=== PATIENT | female | born 1970 | race Caucasian/White ===

== ENCOUNTER 2023-02-02 14:12 | Outpatient (OUT) | payer MEDICARE, MEDICAID, SELFPAY ==
--- NOTE | 2023-02-02 | XR_ITS ---
The [address] [address] Patient Name: MERLY HAYES MRN: [id number] date: 1970 Sex: F Assigned Patient Location: [facility] Current Patient Location: Accession/Order Number: [id number] Exam Date: 02/02/2023 14:45 Report Date: 02/03/2023 11:30 At the request of: CHADWICK GRIFFITH Procedure: XR foot YORDAN min 3V EXAMINATION: XR foot YORDAN min 3V HISTORY: BILATERAL FOOT PAIN COMPARISON: No relevant comparison available. FINDINGS: RIGHT FINDINGS: BONES: No significant arthropathy or acute abnormality. SOFT TISSUES: No visible soft tissue swelling. OTHER: Negative. LEFT FINDINGS: BONES: Mild degenerative changes the midfoot and slight lateral deviation of the metatarsals in relation to the tarsals. No fracture or dislocation. SOFT TISSUES: No visible soft tissue swelling. OTHER: Negative. XR/XR foot YORDAN min 3V IMPRESSION: RIGHT CONCLUSION: No acute abnormality or significant degenerative changes. LEFT CONCLUSION: Mild degenerative changes of the midfoot. Electronically authenticated by: TANNER SHAY Date: 02/03/2023 11:30
== END 2023-02-02 14:13 | disposition home or self-care (01) ==
LOC: RAD 14:13
PROVIDERS: Visit Provider Physician Assistant
DX: M79.673 Pain in unspecified foot (principal)
CPT/HCPCS: 73630

== ENCOUNTER 2023-03-15 12:09 | Outpatient (OUT) | payer MEDICARE, MEDICAID, SELFPAY ==
--- NOTE | 2023-03-15 12:30 | CA_ITS ---
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 (right NANCY 1.27, left NANCY 1.07) Electronically Signed On 03-16-2023 7:21:48 EST by KELLY MIX
== END 2023-03-15 12:10 | disposition home or self-care (01) ==
LOC: CARD 12:09
PROVIDERS: Visit Provider Podiatrist Foot & Ankle Surgery
DX: R09.89 Other specified symptoms and signs involving the circulatory and respiratory systems (principal)
CPT/HCPCS: 93923

== ENCOUNTER 2023-03-27 09:39 | Outpatient (OUT) | payer MEDICARE, MEDICAID, SELFPAY ==
--- NOTE | 2023-03-27 09:48 | ECG_ITS ---
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
--- NOTE | 2023-03-27 10:42 | PM.PRESUREVA ---
History of Present Illness History of Present Illness Chief complaint: Left foot hammertoe Narrative: Patient presents for preadmission testing. Please see HPI from Dr. Acosta dated 03/07/2023. Review of Systems ROS Narrative Please see ROS from Dr. Acosta dated 03/07/2023. [facility] Medical History (Updated 03/27/23 @ 10:38 by Angela Larry NP) Neuropathy ?G62.9 - Polyneuropathy, unspecified (ICD-10) Tinea unguium ?B35.1 - Tinea unguium (ICD-10) Foot drop ?M21.379 - Foot drop, unspecified foot (ICD-10) Pes planus ?M21.40 - Flat foot [pes planus] (acquired), unspecified foot (ICD-10) Foot pain ?M79.673 - Pain in unspecified foot (ICD-10) Back pain ?M54.9 - Dorsalgia, unspecified (ICD-10) Sciatic leg pain ?M54.30 - Sciatica, unspecified side (ICD-10) Arthritis ?M19.90 - Unspecified osteoarthritis, unspecified site (ICD-10) Hammertoe ?M20.40 - Other hammer toe(s) (acquired), unspecified foot (ICD-10) Anxiety ?F41.9 - Anxiety disorder, unspecified (ICD-10) Migraine ?G43.909 - Migraine, unspecified, not intractable, without status migrainosus (ICD-10) Left-sided weakness ?R53.1 - Weakness (ICD-10) CVA (cerebral vascular accident) (2019) ?I63.9 - Cerebral infarction, unspecified (ICD-10) CVA (cerebral vascular accident) (1989) ?I63.9 - Cerebral infarction, unspecified (ICD-10) Kidney stones ?N20.0 - Calculus of kidney (ICD-10) GERD (gastroesophageal reflux disease) ?K21.9 - Gastro-esophageal reflux disease without esophagitis (ICD-10) High cholesterol ?E78.00 - Pure hypercholesterolemia, unspecified (ICD-10) Hypertension ?I10 - Essential (primary) hypertension (ICD-10) Surgical History (Updated 03/27/23 @ 10:28 by Angela Larry NP) History of colonoscopy ?Z98.890 - Other specified postprocedural states (ICD-10) History of hysterectomy ?Z90.710 - Acquired absence of both cervix and uterus (ICD-10) Family History (Updated 03/27/23 @ 10:28 by Angela Larry NP) Other Family history of diabetes mellitus Family history of hypertension Family history of myocardial infarction Social History (Updated 03/27/23 @ 10:24 by Angela Larry NP) Within the past year, how often did you have a drink containing alcohol: never Score interpretation: A score less than 3 is consistent with normal alcohol consumption. Smoking status: Current every day smoker What tobacco products do you use: cigarettes Packs per day: 1 Years smoked: 35 Smoking pack-years: 35.00 Highest level of school completed/degree received: high school graduate Meds Home Medications and Allergies Home Medications Medication Instructions Recorded Confirmed Type clopidogrel 75 mg tablet (Plavix) 75 mg PO DAILY 03/27/23 03/27/23 History cyclobenzaprine 10 mg tablet 10 mg PO DAILY PRN muscle spasm 03/27/23 03/27/23 History diltiazem HCl 300 mg 300 mg PO Q24H 03/27/23 03/27/23 History capsule,extended release 24 hr lisinopril 10 mg tablet 10 mg PO DAILY 03/27/23 03/27/23 History pantoprazole 40 mg tablet,delayed 40 mg PO DAILY 03/27/23 03/27/23 History release pravastatin 40 mg tablet 40 mg PO DAILY 03/27/23 03/27/23 History pregabalin 75 mg capsule 75 mg PO BID 03/27/23 03/27/23 History Allergies Allergy/AdvReac Type Severity Reaction Status Date / Time celecoxib [From Celebrex] Allergy Hypotension Verified 03/27/23 10:19 duloxetine [From Cymbalta] Allergy Unknown Verified 03/27/23 10:19 ibuprofen Allergy Hives Verified 03/27/23 10:19 Sulfa (Sulfonamide Allergy Rash Verified 03/27/23 10:19 Antibiotics) tetracycline Allergy lip Verified 03/27/23 10:19 swelling tramadol AdvReac Nausea Verified 03/27/23 10:19 Exam Narrative Exam Narrative: Constitutional: Awake, alert, comfortable, well-appearing, nontoxic, interactive, vital signs as charted Head: Normocephalic, atraumatic Neck: Supple, normal appearance, normal range of motion, no meningeal signs, no lymphadenopathy Respiratory: No respiratory distress, breath sounds clear Cardiovascular: Regular rate and rhythm, strong and regular heart tones Psychiatric: Oriented ?3, normal affect Assessment and Plan Assessment and Plan (1) Pes planus: (2) Foot pain: (3) Hammertoe: Plan Left partial 3rd toe amputation scheduled with Dr. Acosta 04/06/2023.
[2023-03-27 11:16] LABS: Basophils Absolute Auto 0.1 10^3/uL (0.0-0.1); Basophils Percent Auto 0.7 % (0.2-2.0); Eosinophils Absolute Auto 0.4 10^3/uL (0.0-0.7); Hematocrit 43.7 % (36.0-48.0); Hemoglobin 14.8 g/dL (12.0-16.0); Immature Granulocytes Abs Auto 0.02 10^3/uL (0.00-0.03); Immature Granulocytes Pct Auto 0.2 % (0.0-0.5); Lymphocytes Absolute Auto 3.8 10^3/uL (1.2-3.8); Lymphocytes Percent Auto 41.3 % (20.5-60.0); Mean Corpuscular HGB Conc 33.9 g/dL (29.9-35.2); Mean Corpuscular Hemoglobin 32.7 pg (26.7-34.0); Mean Corpuscular Volume 96.7 fL (81.0-99.0); Mean Platelet Volume 9.4 fL (9.5-13.5); Monocytes Absolute Auto 0.5 10^3/uL (0.3-0.8); Monocytes Percent Auto 5.4 % (1.7-12.0); Neutrophils Absolute Auto 4.5 10^3/uL (1.4-6.5); Neutrophils Percent Auto 48.4 % (43.0-75.0); Platelet Count 327 10^3/uL (150-450); Red Blood Count 4.52 10^6/uL (4.20-5.40); Red Cell Distribution Width 13.1 % (11.0-15.0); White Blood Count 9.2 10^3/uL (4.0-11.0)
[2023-03-27 11:26] LABS: Partial Thromboplastin Time 29.7 sec (22.3-36.2); Prothrombin Time 9.6 sec (9.0-11.6)
[2023-03-27 11:27] LABS: Anion Gap 11.4; Calcium 8.9 mg/dL (8.5-10.1); Carbon Dioxide 28.3 mmol/L (21.0-32.0); Chloride 103 mmol/L (98-107); Estimated GFR (African America >60 (>=60); Estimated GFR (Non-African Ame >60 (>=60); Glucose 79 mg/dL (74-106); Potassium 3.7 mmol/L (3.5-5.1); Sodium 139 mmol/L (136-145)
[2023-03-27 11:28] LABS: INR <0.93
== END 2023-03-27 09:40 | disposition home or self-care (01) ==
LOC: PST 09:43
PROVIDERS: PCP Physician Assistant; Visit Provider Podiatrist Foot & Ankle Surgery
DX: Z01.810 Encounter for preprocedural cardiovascular examination (principal); Z01.812 Encounter for preprocedural laboratory examination; M20.42 Other hammer toe(s) (acquired), left foot
CPT/HCPCS: 80048; 85025; 85610; 85730; 93005; G0463

== ENCOUNTER 2023-03-31 18:44 | Outpatient (REF) | payer MEDICARE, MEDICAID, SELFPAY ==
--- OUTSIDE RECORDS SUMMARY | 2023-03-31 18:48 | XMS_ITS | CCD ---
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 Performed By: #### B MP, CBC, SCAN ####[place] [address] [place] [address] [place] Estimated GFR (Non- Am > 60 Normal [facility] Comment on above: Performed By: #### B MP, CBC, SCAN ####[address] [address] [place] Glucose mass conc 79 mg/dL Normal 70-100 [facility] Comment on above: Result Comment: [facility] Glucose Reference Range is dependent on time and content of last meal. Glucose of more than 200 mg/dL in a nonstressed, ambulatory subject supports the diagnosis of Diabetes Mellitus. ADA recommended reference range Performed By: #### B MP, CBC, SCAN ####[place] [address] [place] [address] [facility] Potassium molar conc 3.5 mmol/L Normal 3.5-5.1 [facility] Comment on above: Performed By: #### B MP, CBC, SCAN ####[place] [address] [place] [address] [place] Sodium molar conc 137 mmol/L Normal 136-146 [facility] Comment on above: Performed By: #### B MP, CBC, SCAN ####[address] [address] [place] Urea nitrogen mass conc 9 mg/dL Normal 9-23 [facility] Comment on above: Performed By: #### B MP, CBC, SCAN ####[place] [address] [address] Complete Blood Count Auto Di ffon 06-26-2018 Basophils #/vol (Bld) 0.1 10*3/uL Normal 0.0-0.2 [facility] Comment on above: Performed By: #### B MP, CBC, SCAN ####[address] Basophils/100 WBC (Bld) 0.6 % Normal . [facility] Comment on above: Performed By: #### B MP, CBC, SCAN ####[address] Eosinophils #/vol (Bld) 0.2 10*3/uL Normal 0.0-0.45 [facility] Comment on above: Performed By: #### B MP, CBC, SCAN ####[address] Eosinophils/100 WBC (Bld) 1.7 % Normal . [facility] Comment on above: Performed By: #### B MP, CBC, SCAN ####[address] Erythrocyte distribution width Ratio (RBC) 14.7 % Normal 11.9-15.3 [facility] Comment on above: Performed By: #### B MP, CBC, SCAN ####[address] Hematocrit Volume Fraction (Bld) 45.3 % Normal 34.0-46.4 [facility] Comment on above: Performed By: #### B MP, CBC, SCAN ####[address] Hemoglobin mass conc (Bld) 15.3 g/dL Normal 11.8-15.4 [facility] Comment on above: Performed By: #### B MP, CBC, SCAN ####[facility] [address] [place] [address] Lymphocytes #/vol (Bld) 6.1 10*3/uL High 1.00-4.8 [facility] Comment on above: Performed By: #### B MP, CBC, SCAN ####[place] [id number] [facility] Lymphocytes/100 WBC (Bld) 45.3 % Normal . [facility] Comment on above: Performed By: #### B MP, CBC, SCAN ####[place] [address] [place] [address] [facility] MCH Entitic mass (RBC) 32.9 pg Normal 24.7-34.3 [facility] Comment on above: Performed By: #### B MP, CBC, SCAN ####[place] [address] [place] [address] [facility] MCH Entitic mass (RBC) 33.7 g/dL Normal 32.0-35.0 [facility] Comment on above: Performed By: #### B MP, CBC, SCAN ####[address] MCV Entitic volume (RBC) 97.6 fL Normal 80-100 [facility] Comment on above: Performed By: #### B MP, CBC, SCAN ####[place] [id number] [facility] Monocytes #/vol (Bld) 0.7 10*3/uL Normal 0.0-0.8 [facility] Comment on above: Performed By: #### B MP, CBC, SCAN ####[place] [id number] [facility] Monocytes/100 WBC (Bld) 5.4 % Normal . [facility] Comment on above: Performed By: #### B MP, CBC, SCAN ####[address] [address] [facility] Neutrophils #/vol (Bld) 6.4 10*3/uL Normal 1.8-7.7 [facility] Comment on above: Performed By: #### B MP, CBC, SCAN ####[facility] [address] [place], [place] [id number] [facility] Neutrophils/100 WBC (Bld) 47.0 % Normal . [facility] Comment on above: Performed By: #### B MP, CBC, SCAN ####[place] [address] [place] [id number] [facility] Nucleated RBC/100 WBC Ratio (Bld) 0.1 % Normal 0-0.5 [facility] Comment on above: Performed By: #### B MP, CBC, SCAN ####[place] [id number] [facility] Platelet mean volume Entitic volume (Bld) 7.3 fL Normal 6.3-10.7 [facility] Comment on above: Performed By: #### B MP, CBC, SCAN ####[place] [id number] [facility] Platelets #/vol (Bld) 348 10*3/uL Normal 150-450 [facility] Comment on above: Performed By: #### B MP, CBC, SCAN ####[address] RBC #/vol (Bld) 4.64 10*6/uL Normal 3.60-5.00 [facility] Comment on above: Performed By: #### B MP, CBC, SCAN ####[place] [id number] [facility] WBC #/vol (Bld) 13.6 10*3/uL High 3.8-11.6 [facility] Comment on above: Performed By: #### B MP, CBC, SCAN ####[place] [id number] [facility] Scan Smearon 06-26-2018 Platelet Morphology Normal Normal Normal [facility] Comment on above: Result Comment: PERF ORMED BY: [facility] [address] [place] [address] PATHOLOGIST [employer] BROWN PEREZ M.D. Performed By: #### B MP, CBC, SCAN ####[place] [address] [place] [id number] [facility] Platelets #/vol (Bld) Normal Normal Normal [facility] Comment on above: Performed By: #### B MP, CBC, SCAN ####[place] [address] [place] [id number] [facility] RBC morphology finding Nom (Bld) Normal Normal [facility] Comment on above: Performed By: #### B MP, CBC, SCAN ####[facility] [address] [place] [id number] [facility] XR chest 1V portableon 06-26 XR chest 1V portable [facility] [address] [place] [address] XRay Report Signed Patient: Merly Torrez MR#: [id number] : 1970 Acct:[id number] Age/Sex: 48 / F ADM Date: 06/24/18 Loc: Room: [address] [place] [address] Type: ADM IN Attending Dr: Yoko Johnson MD Ordering Provider: Yoko Johnson MD Date of Service: 06/26/18 XR/XR chest 1V portable: leukocytosis Copies to: Yoko Johnson MD XR chest 1V portable 06/26/2018 3:57 PM SIGNS AND SYMPTOMS: Cough, weakness, leukocytosis PROTOCOL: Frontal radiograph of the chest COMPARISON: None FINDINGS: The trachea is midline. The heart and mediastinal structures are within normal limits. The lung parenchyma is clear. There is a deformity of the distal left clavicle which is most likely posttraumatic or postoperative. The bony thorax is intact. XR/XR chest 1V portable IMPRESSION: No acute cardiopulmonary pathology. Impression dictated by: Joselito Edge M.D.06/26/2018 7:06 PM Dictation Location: [facility] Transcribed By: [facility] 06/26/181905 Dictated By: Joselito Edge II, MD 06/26/181904 Signed By: 06/26/181905 Normal [facility] A1C with Estimated Average G js 06-25-2018 Glucose mass conc 111 mg/dL Normal [facility] Comment on above: Result Comment: PERF ORMED BY: [place] [address] PATHOLOGIST [employer] BROWN PEREZ M.D. Performed By: #### C MP, MG, LIPID, CBC, A1C WTH eA #### [address] Hemoglobin A1c/Hemoglobin.total mass fraction (Bld) 5.5 % Normal 4.3-5.6 [facility] Comment on above: Result Comment: Incr eased risk for diabetes: 5.7 - 6.4 diabetes: >6.4 glycemic control for adults with diabetes: <7.0 Performed By: #### C MP, MG, LIPID, CBC, A1C WTH eA #### [address] Complete Blood Count Auto Di ffon 06-25-2018 Basophils #/vol (Bld) 0.0 10*3/uL Normal 0.0-0.2 [facility] Comment on above: Result Comment: PERF ORMED BY: [place] [address] PATHOLOGIST [employer] BROWN PEREZ M.D. Performed By: #### C MP, MG, LIPID, CBC, A1C WTH eA #### [address] Basophils/100 WBC (Bld) 0.2 % Normal . [facility] Comment on above: Performed By: #### C MP, MG, LIPID, CBC, A1C WTH eA #### [address] Eosinophils #/vol (Bld) 0.0 10*3/uL Normal 0.0-0.45 [facility] Comment on above: Performed By: #### C MP, MG, LIPID, CBC, A1C WTH eA #### [address] Eosinophils/100 WBC (Bld) 0.1 % Normal . [facility] Comment on above: Performed By: #### C MP, MG, LIPID, CBC, A1C WTH eA #### [address] Erythrocyte distribution width Ratio (RBC) 15.0 % Normal 11.9-15.3 [facility] Comment on above: Performed By: #### C MP, MG, LIPID, CBC, A1C WTH eA #### [address] Hematocrit Volume Fraction (Bld) 42.3 % Normal 34.0-46.4 [facility] Comment on above: Performed By: #### C MP, MG, LIPID, CBC, A1C WTH eA #### [address] Hemoglobin mass conc (Bld) 14.2 g/dL Normal 11.8-15.4 [facility] Comment on above: Performed By: #### C MP, MG, LIPID, CBC, A1C WTH eA #### [address] Lymphocytes #/vol (Bld) 3.5 10*3/uL Normal 1.00-4.8 [facility] Comment on above: Performed By: #### C MP, MG, LIPID, CBC, A1C WTH eA #### [address] Lymphocytes/100 WBC (Bld) 28.7 % Normal . [facility] Comment on above: Performed By: #### C MP, MG, LIPID, CBC, A1C WTH eA #### [address] MCH Entitic mass (RBC) 33.5 g/dL Normal 32.0-35.0 [facility] Comment on above: Performed By: #### C MP, MG, LIPID, CBC, A1C WTH eA #### [address] MCH Entitic mass (RBC) 32.9 pg Normal 24.7-34.3 [facility] Comment on above: Performed By: #### C MP, MG, LIPID, CBC, A1C WTH eA #### [address] MCV Entitic volume (RBC) 98.1 fL Normal 80-100 [facility] Comment on above: Performed By: #### C MP, MG, LIPID, CBC, A1C WTH eA #### [facility] [address] [place] [address] Monocytes #/vol (Bld) 0.8 10*3/uL Normal 0.0-0.8 [facility] Comment on above: Performed By: #### C MP, MG, LIPID, CBC, A1C WTH eA #### [facility] [address] [place] [address] Monocytes/100 WBC (Bld) 6.9 % Normal . [facility] Comment on above: Performed By: #### C MP, MG, LIPID, CBC, A1C WTH eA #### [facility] [address] [place] [address] Neutrophils #/vol (Bld) 7.8 10*3/uL High 1.8-7.7 [facility] Comment on above: Performed By: #### C MP, MG, LIPID, CBC, A1C WTH eA #### [address] Neutrophils/100 WBC (Bld) 64.1 % Normal . [facility] Comment on above: Performed By: #### C MP, MG, LIPID, CBC, A1C WTH eA #### [address] Nucleated RBC/100 WBC Ratio (Bld) 0.1 % Normal 0-0.5 [facility] Comment on above: Performed By: #### C MP, MG, LIPID, CBC, A1C WTH eA #### [address] Platelet mean volume Entitic volume (Bld) 7.7 fL Normal 6.3-10.7 [facility] Comment on above: Performed By: #### C MP, MG, LIPID, CBC, A1C WTH eA #### [facility] [address] [place] [address] Platelets #/vol (Bld) 333 10*3/uL Normal 150-450 [facility] Comment on above: Performed By: #### C MP, MG, LIPID, CBC, A1C WTH eA #### [place] [address] [place] RBC #/vol (Bld) 4.32 10*6/uL Normal 3.60-5.00 [facility] Comment on above: Performed By: #### C MP, MG, LIPID, CBC, A1C WTH eA #### [facility] [address] WBC #/vol (Bld) 12.2 10*3/uL High 3.8-11.6 [facility] Comment on above: Performed By: #### C MP, MG, LIPID, CBC, A1C WTH eA #### [facility] [address] Comprehensive Metabolic Pane kishan 06-25-2018 Albumin mass conc 3.1 g/dL Low 3.2-5.5 [facility] Comment on above: Performed By: #### C MP, MG, LIPID, CBC, A1C WTH eA #### [address] Albumin/Globulin mass ratio 1.2 {ratio} Normal [facility] Comment on above: Performed By: #### C MP, MG, LIPID, CBC, A1C WTH eA #### [facility] [address] [place] [address] ALP enzyme act/vol 52 U/L Normal 32-92 [facility] Comment on above: Performed By: #### C MP, MG, LIPID, CBC, A1C WTH eA #### [facility] [address] [place] [address] ALT enzyme act/vol 30 U/L Normal 10-60 [facility] Comment on above: Performed By: #### C MP, MG, LIPID, CBC, A1C WTH eA #### [facility] [address] AST enzyme act/vol 14 U/L Normal 10-42 [facility] Comment on above: Performed By: #### C MP, MG, LIPID, CBC, A1C WTH eA #### [facility] [address] Bilirubin mass conc 0.6 mg/dL Normal 0.3-1.2 [facility] Comment on above: Performed By: #### C MP, MG, LIPID, CBC, A1C WTH eA #### [address] Calcium mass conc 8.6 mg/dL Normal 8.2-10.2 [facility] Comment on above: Performed By: #### C MP, MG, LIPID, CBC, A1C WTH eA #### [address] Chloride molar conc 103 mmol/L Normal 95-114 [facility] Comment on above: Performed By: #### C MP, MG, LIPID, CBC, A1C WTH eA #### [address] CO2 molar conc 25.9 mmol/L Normal 22.0-30.0 [facility] Comment on above: Performed By: #### C MP, MG, LIPID, CBC, A1C WTH eA #### [address] Creatinine mass conc 123.7907832007 mg/dL Normal [facility] Comment on above: Performed By: #### C MP, MG, LIPID, CBC, A1C WTH eA #### [address] Creatinine mass conc 0.52 mg/dL Normal 0.44-1.03 [facility] Comment on above: Performed By: #### C MP, MG, LIPID, CBC, A1C WTH eA #### [address] Estimated GFR ( Yanci > 60 [facility] Comment on above: Result Comment: GFR estimated reference range: According to KDOQI guidelines, <60 ml/min/1.73m2 is sufficient to diagnose a patient with chronic kidney disease. Performed By: #### C MP, MG, LIPID, CBC, A1C WTH eA #### [address] Estimated GFR (Non- Am > 60 [facility] Comment on above: Performed By: #### C MP, MG, LIPID, CBC, A1C WTH eA #### [facility] [address] [place] [address] [place] Globulin mass conc (S) 2.5 g/dL Normal [facility] Comment on above: Performed By: #### C MP, MG, LIPID, CBC, A1C WTH eA #### [facility] [address] Glucose mass conc 93 mg/dL Normal 70-100 [facility] Comment on above: Result Comment: [facility] Glucose Reference Range is dependent on time and content of last meal. Glucose of more than 200 mg/dL in a nonstressed, ambulatory subject supports the diagnosis of Diabetes Mellitus. ADA recommended reference range Performed By: #### C MP, MG, LIPID, CBC, A1C WTH eA #### [facility] [address] Potassium molar conc 3.2 mmol/L Low 3.5-5.1 [facility] Comment on above: Performed By: #### C MP, MG, LIPID, CBC, A1C WTH eA #### [facility] [address] Protein mass conc 5.6 g/dL Low 6.1-7.9 [facility] Comment on above: Performed By: #### C MP, MG, LIPID, CBC, A1C WTH eA #### [facility] [address] [place] [address] [place] Sodium molar conc 137 mmol/L Normal 136-146 [facility] Comment on above: Performed By: #### C MP, MG, LIPID, CBC, A1C WTH eA #### [facility] [address] [place] [address] [place] Urea nitrogen mass conc 8 mg/dL Low 9-23 [facility] Comment on above: Performed By: #### C MP, MG, LIPID, CBC, A1C WTH eA #### [facility] [address] ECH echo transthoracicon ECH echo transthoracic [facility] [address] [place] [address] Echocardiogram Signed Patient: Merly Torrez MR#: [id number] : 1970 Acct:[id number] Age/Sex: 48 / F ADM Date: 06/24/18 Loc: 4 Room: [address] [place] [address] Type: ADM IN Attending Dr: Yoko Johnson MD Ordering Provider: Eric Donnelly MD Date of Service: 06/25/18 ECH/ECH echo transthoracic: Source of Emboli Copies to: Mckenzie Griffiths MD, FACC Eric Donnelly MD Height: 62 in Weight: 152 lb Performed By: Sarita Stuart RDCS BSA: 1.7 m2 BP: 155/79 mmHg HR: 59 Reason For Study: Source of Emboli History: HTN, Stroke, Smoker Interpretation Summary The left ventricular size, thickness and function are normal Ejection Fraction = 60-65%. The left atrium appears mildly dilated. Atrial septum appears to be intact and there is no evidence of flow across the atrial septum either by colorflow Doppler or by agitated saline. There is no prior echocardiogram noted for this patient. Procedure/Quality: A two-dimensional transthoracic echocardiogram with color flow, Doppler and injection of aggitated saline was performed. The study was technically good in quality. There is no prior echocardiogram noted for this patient. Left Ventricle: The left ventricular size, thickness and function are normal. Ejection Fraction = 60-65%. Left Atrium: The left atrium appears mildly dilated. The atrial septum appears normal. Atrial septum appears to be intact and there is no evidence of flow across the atrial septum either by colorflow Doppler or by agitated saline. Right Atrium: The right atrium appears normal in size. Right Ventricle: The right ventricular size, thickness and function are normal. Aortic Valve: The aortic valve is normal in structure and function. Mitral Valve: The mitral valve is normal in structure and function. Tricuspid Valve: The tricuspid valve is normal in structure and function. Pulmonic Valve: The pulmonic valve is not well seen, but is grossly normal. Arteries: The aortic root is normal size. Pericardium/Pleura: No pericardial effusion seen. There is no pleural effusion. IVC/Hepatic Viens: The IVC is normal in size with an inspiratory collapse of greater then 50%, suggesting normal right atrial pressure. No thrombus, vegetation or mass is seen. Measurements with Normals IVSd: 1.3 cm (0.7-1.1 cm)LVIDd: 4.6 cm (3.7-5.4 cm) LVPWd: 0.99 cm (0.7-1.1 cm)LVIDs: 3.6 cm (2.3-3.6 cm) LA dimension: 4.3 cm(2.3-4.0 cm)Ao root diam: 3.1 cm(2.0-3.2 cm) Doppler with Normals LV V1 max: 88.8 cm/sec (0.7-1.7m/s)MV E max sumi: 86.3 cm/sec(0.8-1.3m/s) MV A max sumi: 69.4 cm/sec(0.0-0.0m/s) MV E/A: 1.2 (<1.5) MMode/2D Measurements Calculations FS: 21.6 % Ao root area: LAV(MOD-sp4): LA A2 area: 17.7 cm2 EDV(Teich): 7.3 cm2 65.4 ml LA A4 area: 22.0 cm2 98.1 ml LAV(MOD-sp2): LA length (vol): ESV(Teich): 43.8 ml 5.7 cm 55.1 ml LA vol: 57.7 ml EF(Teich): 43.9 % LA vol index: 33.9 ml/m2 Doppler Measurements Calculations MV dec time: E/E' lat: 8.4 MV dec slope: Ao V2 max: 0.23 sec E/E' med: 11.2 371.5 cm/sec2 146.7 cm/sec Ao max P.6 mmHg Ao mean P.2 mmHg Ao V2 mean: 93.7 cm/sec Ao V2 VTI: 34.7 cm __ LV V1 max PG: RAP systole: 3.2 mmHg 5.0 mmHg LV V1 mean P.4 mmHg LV V1 mean: 54.4 cm/sec LV V1 VTI: 21.3 cm __ Transcribed By: LUISA 06/25/18 1014 Dictated By: Mckenzie Griffiths MD, [facility] 06/25/18 0920 Signed By: 06/25/18 1014 Normal [facility] Lipid Panelon 06-25-2018 Cholesterol in HDL mass conc 52 mg/dL Normal 35-85 [facility] Comment on above: Result Comment: HDL CHOL ATP-III CLASSIFICATION Cardiovascular Risk HDL > or equal to 60 mg/dL LOW HDL < 40 mg/dL HIGH Performed By: #### C MP, MG, LIPID, CBC, A1C WTH eA #### [facility] [address] Cholesterol mass conc 206 mg/dL High 140-200 [facility] Comment on above: Result Comment: Chol less than 200 mg/dl low risk Chol 201-239 mg/dl borderline risk Chol 240 mg/dl and greater high risk Performed By: #### C MP, MG, LIPID, CBC, A1C WTH eA #### [facility] [address] Cholesterol.total/Ch olesterol in HDL mass ratio 4.0 {ratio} Normal <5.0 [facility] Comment on above: Result Comment: PERF ORMED BY: [place] [address] PATHOLOGIST [employer] BROWN PEREZ M.D. Performed By: #### C MP, MG, LIPID, CBC, A1C WTH eA #### [facility] [address] [place] [id number] [place] LDL Cholesterol,Calculat ed 138 mg/dL High 0-100 [facility] Comment on above: Result Comment: LDL ATP III CLASSIFICATION LDL less than 100 mg/dL Optimal LDL 100-129 mg/dL Near or above optimal LDL 130-159 mg/dL Borderline high LDL 160-189 mg/dL High LDL greater than 189 mg/dL Very high Performed By: #### C MP, MG, LIPID, CBC, A1C WTH eA #### [facility] [address] Triglyceride w/Reflex 79 mg/dL Normal 35-149 [facility] Comment on above: Result Comment: TRIG ATP III CLASSIFICATION TRIG less than 150 mg/dL Normal TRIG 150-199 mg/dL Borderline high TRIG 200-500 mg/dL High TRIG greater than 500 mg/dL Very high Standard traceable to the Center for Disease Conrtrol and Prevention (CDC) test method. Performed By: #### C MP, MG, LIPID, CBC, A1C WTH eA #### [facility] [address] VLDL CHOLESTEROL 15 mg/dL Normal [facility] Comment on above: Performed By: #### C MP, MG, LIPID, CBC, A1C WTH eA #### 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 Impression dictated by: Joselito Edge M.D.07/04/2018 1:54 PM [facility]ictation [id number] Addendum Dictated By: Joselito Edge II, MD Addendum Signed By: 07/04/181355 Addendum Cosigned By: DD/ TD/TT: 07/04/18 ADDENDUM 1 MRA BRAIN: The superior cerebellar arteries and the basilar artery are within normal limits. There is occlusion of the V4 segment of the left vertebral artery intracranially with occlusion of the left posterior inferior cerebellar artery origin. The posterior cerebral arteries are unremarkable. The intracranial segments of the internal carotid arteries are within normal limits. 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 Anterior communicating artery is patent. Posterior communicating arteries are present. The deep venous system and dural venous systems appear to be patent. Addendum Dictated By: Joselito Edge II, MD Addendum Signed By: 07/04/181353 Addendum Cosigned By: DD/ TD/TT: 07/04/18 MR head/brain wo con 06/24/2018 7:33 PM SIGN AND SYMPTOMS: Left-sided deficits, contracture of left arm with increasing weakness for 2 days , numbness and tingling on left side of face PROTOCOL: Sagittal T1, axial diffusion, axial T2 FLAIR, coronal diffusion, axial T2, and axial T1 COMPARISON: 05/28/2018 and MRI of the brain FINDINGS: Extra axial spaces: Age appropriate. Hemorrhage: None. Ventricular system: Within normal limits. Basal cisterns: Within normal limits and not effaced. Cerebral parenchyma: Scattered bilateral cortically-based occipital diffusion restriction is noted. These are new when compared to the prior exam. There is a focus of diffusion restriction within the mid aspect of the left thalamus. These findings are new when compared to the prior study. There is edema on T2 and T2 FLAIR imaging in these locations. There is similar gliosis and encephalomalacia within the left postcentral gyrus. There are also a few stable scattered focal areas of periventricular and subcortical white matter T2 and T2 FLAIR hyperintensity suggesting chronic microvascular ischemic change. There are remote infarcts within the left MCA/MARIO watershed territory and within the splenium of the corpus callosum, particularly to the left of midline. Midline shift: None. Cerebellum: There is diffusion restriction within the left cerebellar hemisphere which is new when compared to the prior exam consistent with ischemia. This is predominantly within the left posterior inferior cerebellar artery territory. This also involves the left side of the vermis. Brainstem: Similar areas of gliosis and encephalomalacia are noted within the debbie consistent with remote ischemia. OTHER: Calvarium: Normal marrow signal. Vascular system: There is loss of the flow based enhancement within the distal aspects of the left at vertebral artery V4 segment. Visualized Paranasal sinuses: There is polypoid mucosal thickening in the right maxillary sinus and to a lesser extent the left maxillary sinus. Visualized Orbits: Within normal limits. Visualized upper cervical spine: Within normal limits. Sella and skull base: Within normal limits. MR/MR head/brain wo con IMPRESSION: New occipital cortically based infarcts which are unchanged. New infarct within the left posterior inferior cerebellar artery territory extending into the left side of the cerebellar vermis. New punctate infarct within the mid body of the left thalamus. There is loss of the flow based enhancement within the distal aspects of the left at vertebral artery V4 segment. This may represent a new occlusion in the posterior circulation involving the left vertebral artery. Remote infarcts of the splenium of the corpus callosum to the left of midline as well as the left MCA/MARIO watershed territories. Remote infarcts are noted within the debbie, similar to the prior study. Impression dictated by: Joselito Edge M.D.06/25/2018 4:37 PM Dictation Location: [place] [address] Transcribed By: CHOLO 06/25/18 1637 Dictated By: Joselito Edge II, MD 06/25/18 1627 Signed By: 06/25/18 1637 Normal [facility] Magnesiumon 06-25-2018 Magnesium mass conc 1.9 mg/dL Normal 1.6-2.6 [facility] Comment on above: Performed By: #### C MP, MG, LIPID, CBC, A1C WT eA #### [facility] [address] [place] [address] [place] US carotid doppler BIon 06-08 US carotid doppler BI [facility] [address] [place] [address] Vascular Lab Report Signed Patient: Merly Torrez MR#: [id number] : 1970 Acct:[id number] Age/Sex: 48 / F ADM Date: 06/24/18 Loc: 4P Room: 5C5844-2 Type: ADM IN Attending Dr: Yoko Johnson MD Ordering Provider: Eric Donnelly MD Date of Service: 06/25/18 US/US carotid doppler BI: Cerebellar infarct, nonhemorrhagic Copies to: MD Eric Pearce MD BILATERAL CAROTID DOPSCAN INDICATION: Left-sided weakness. Color-flow Doppler scanning of the right and left common carotid and distal bifurcation systems demonstrates mild right carotid calcification and plaque formation with no hemodynamically significant obstructive lesions being noted. Normal peak systolic velocities of 91 cm per second are noted to be present over the anatomical course of the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
== END 2023-03-31 18:45 | disposition home or self-care (01) ==
LOC: LAB 18:44
PROVIDERS: PCP Physician Assistant; Visit Provider Physician Assistant
DX: R30.0 Dysuria (principal)
CPT/HCPCS: 87086; 87150; 87186

== ENCOUNTER 2023-04-06 07:31 | Day surgery (SDC) | payer MEDICARE, MEDICAID, SELFPAY ==
[2023-03-27 10:39] VITALS: BP 153/76; PULSE 79; RESP 18; TEMP 36.6; O2SAT 100; BMI 33.8
[2023-04-06] VITALS (13 sets, daily range): BP systolic 143–151; BP diastolic 50–86; PULSE 68–80; RESP 11–21; TEMP 36.3; O2SAT 91–100; BMI 32.2
--- OUTSIDE RECORDS SUMMARY | 2023-04-06 07:36 | XMS_ITS | CCD ---
Author Name Unknown Address [address] [place] [address] Organization [facility] Care Team Providers Care [employer] Shift Supervisor Name Role Phone NELLY, MAX L Primary [...] ., DR SEWELL Attending Unavailable [facility] Primary Care [facility], DR DENISE Finley Consulting Unavailable PAY ., DR SEWELL Consulting Unavailable Allergies Allergy Classification Reported Allergen(s) Allergy Type Date of Onset Reaction(s) Facility (1 source) Aspirin Drug Allergy 06-24-2018 [facility] Repository (1 source) celecoxib Drug Allergy 06-24-2018 [facility] Repository (1 source) Ibuprofen Drug Allergy 06-24-2018 [facility] Repository (1 source) Sulfonamides (Antibiotic) Drug allergy (disorder) 06-24-2018 [facility] Repository (1 source) Tetracycline Drug Allergy 06-24-2018 [facility] Repository (1 source) Aspirin Drug Allergy 05-26-2015 [facility] Repository (1 source) celecoxib Drug Allergy 05-26-2015 [facility] Repository (1 source) Ibuprofen Drug Allergy 05-26-2015 [facility] Repository (1 source) Sulfonamides (Antibiotic) Drug allergy (disorder) 05-26-2015 [facility] Repository (1 source) Tetracycline Drug Allergy 05-26-2015 [facility] Repository Problems Problem Classification Problem Date [...] Episodic Other aftercare (1 source) Other senior living (current) drug therapy; Translations: [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] Onset: 08-04-2022 Episodic Other [...] by: DENISE HURTADO Date: 2022-08-03 12:03 Normal [facility] Complete Blood Count Auto Di ffon 06-28-2018 Erythrocyte distribution width Ratio (RBC) 14.8 % Normal 11.9-15.3 [facility] Comment on above: Performed By: #### C BC, DIFF ####[place] [id number] [place] [id number] [facility] Hematocrit Volume Fraction (Bld) 44.5 % Normal 34.0-46.4 [facility] Comment on above: Performed By: #### C BC, DIFF ####[place] [id number] [place] [address] [facility] Hemoglobin mass conc (Bld) 14.8 g/dL Normal 11.8-15.4 [facility] Comment on above: Performed By: #### C BC, DIFF ####[address] [address] [facility] MCH Entitic mass (RBC) 33.3 g/dL Normal 32.0-35.0 [facility] Comment on above: Performed By: #### C BC, DIFF ####[address] [address] [facility] MCH Entitic mass (RBC) 32.8 pg Normal 24.7-34.3 [facility] Comment on above: Performed By: #### C BC, DIFF ####[place] [address] [place] [address] [facility] MCV Entitic volume (RBC) 98.4 fL Normal 80-100 [facility] Comment on above: Performed By: #### C BC, DIFF ####[place] [id number] [place] [address] [facility] Nucleated RBC/100 WBC Ratio (Bld) 0.0 % Normal 0-0.5 [facility] Comment on above: Performed By: #### C BC, DIFF ####[facility] [place] [address] [facility] Platelet mean volume Entitic volume (Bld) 7.3 fL Normal 6.3-10.7 [facility] Comment on above: Performed By: #### C BC, DIFF ####[address] [address] [facility] Platelets #/vol (Bld) 383 10*3/uL Normal 150-450 [facility] Comment on above: Performed By: #### C BC, DIFF ####[address] [address] [facility] RBC #/vol (Bld) 4.53 10*6/uL Normal 3.60-5.00 [facility] Comment on above: Performed By: #### C BC, DIFF ####[address] [address] [facility] WBC #/vol (Bld) 13.8 10*3/uL High 3.8-11.6 [facility] Comment on above: Performed By: #### C BC, DIFF ####[address] [address] [facility] Manual Differentialon 2018 Band form neutrophils/100 WBC (Bld) 1 % Normal 0-5 [facility] Comment on above: Performed By: #### C BC, DIFF ####[address] [address] [facility] Eosinophils/100 WBC (Bld) 3 % Normal 1-3 [facility] Comment on above: Performed By: #### C BC, DIFF ####[address] [address] [facility] Lymphocytes/100 WBC (Bld) 32 % Normal 18-42 [facility] Comment on above: Performed By: #### C BC, DIFF ####[address] [address] [facility] Monocytes/100 WBC (Bld) 5 % Normal 2-11 [facility] Comment on above: Performed By: #### C BC, DIFF ####[place] [address] [place] [id number] [facility] Platelet Morphology Normal Normal Normal [facility] Comment on above: Result Comment: PERF ORMED BY: [facility] [address] [place] [address] PATHOLOGIST RACING MECHANIC BROWN PEREZ M.D. Performed By: #### C BC, DIFF ####[address] Platelets #/vol (Bld) Normal Normal Normal [facility] Comment on above: Performed By: #### C BC, DIFF ####[address] RBC morphology finding Nom (Bld) Normal Normal [facility] Comment on above: Performed By: #### C BC, DIFF ####[address] Reactive Lymphocytes 14 % High 0-[address] [facility] Comment on above: Performed By: #### C BC, DIFF ####[place] [id number] [facility] Segmented neutrophils/100 WBC (Bld) 45 % Low 50-70 [facility] Comment on above: Performed By: #### C BC, DIFF ####[place] [id number] [facility] Complete Blood Count Auto Di ffon 06-27-2018 Basophils #/vol (Bld) 0.0 10*3/uL Normal 0.0-0.2 [facility] Comment on above: Performed By: #### C BC, SCAN ####[place] [id number] [place] Basophils/100 WBC (Bld) 0.3 % Normal . [facility] Comment on above: Performed By: #### C BC, SCAN ####[place] [id number] [facility] Eosinophils #/vol (Bld) 0.3 10*3/uL Normal 0.0-0.45 [facility] Comment on above: Performed By: #### C BC, SCAN ####[address] [address] [facility] Eosinophils/100 WBC (Bld) 2.7 % Normal . [facility] Comment on above: Performed By: #### C BC, SCAN ####[place] [address] [place] [address] [facility] Erythrocyte distribution width Ratio (RBC) 14.5 % Normal 11.9-15.3 [facility] Comment on above: Performed By: #### C BC, SCAN ####[address] [address] [facility] Hematocrit Volume Fraction (Bld) 43.7 % Normal 34.0-46.4 [facility] Comment on above: Performed By: #### C BC, SCAN ####[place] [id number] [facility] Hemoglobin mass conc (Bld) 14.6 g/dL Normal 11.8-15.4 [facility] Comment on above: Performed By: #### C BC, SCAN ####[place] [id number] [facility] Lymphocytes #/vol (Bld) 6.0 10*3/uL High 1.00-4.8 [facility] Comment on above: Performed By: #### C BC, SCAN ####[place] [id number] [facility] Lymphocytes/100 WBC (Bld) 47.7 % Normal . [facility] Comment on above: Performed By: #### C BC, SCAN ####[address] [address] [facility] MCH Entitic mass (RBC) 33.5 g/dL Normal 32.0-35.0 [facility] Comment on above: Performed By: #### C BC, SCAN ####[address] [address] [facility] MCH Entitic mass (RBC) 32.7 pg Normal 24.7-34.3 [facility] Comment on above: Performed By: #### C BC, SCAN ####[address] [place] [address] [place] MCV Entitic volume (RBC) 97.7 fL Normal 80-100 [facility] Comment on above: Performed By: #### C BC, SCAN ####[address] Monocytes #/vol (Bld) 0.6 10*3/uL Normal 0.0-0.8 [facility] Comment on above: Performed By: #### C BC, SCAN ####[address] Monocytes/100 WBC (Bld) 4.9 % Normal . [facility] Comment on above: Performed By: #### C BC, SCAN ####[address] Neutrophils #/vol (Bld) 5.6 10*3/uL Normal 1.8-7.7 [facility] Comment on above: Performed By: #### C BC, SCAN ####[address] Neutrophils/100 WBC (Bld) 44.4 % Normal . [facility] Comment on above: Performed By: #### C BC, SCAN ####[address] Nucleated RBC/100 WBC Ratio (Bld) 0.0 % Normal 0-0.5 [facility] Comment on above: Performed By: #### C BC, SCAN ####[address] Platelet mean volume Entitic volume (Bld) 7.3 fL Normal 6.3-10.7 [facility] Comment on above: Performed By: #### C BC, SCAN ####[place] [phone] [facility] Platelets #/vol (Bld) 347 10*3/uL Normal 150-450 [facility] Comment on above: Performed By: #### C BC, SCAN ####[address] RBC #/vol (Bld) 4.47 10*6/uL Normal 3.60-5.00 [facility] Comment on above: Performed By: #### C BC, SCAN ####[facility] [id number] [place] [id number] [facility] WBC #/vol (Bld) 12.7 10*3/uL High 4.5-11.0 [facility] Comment on above: Performed By: #### C BC, SCAN ####[facility] [address] [place] [id number] [facility] ECH echo transesophageal OMAR on 06-27-2018 ECH echo transesophageal OMAR [facility] [address] [place] [address] [place] [address] Echocardiogram Signed Patient: Merly Torrez MR#: [id number] : 1970 Acct:[id number] Age/Sex: 48 / F ADM Date: 06/24/18 Loc: Room: [address] [place] [address] Type: ADM IN Attending Dr: Yoko Johnson [...] 06/27/18 1354 Signed By: 06/27/18 1446 Normal [facility] Scan Smearon 06-27-2018 Platelet Morphology Normal Normal Normal [facility] Comment on above: Result Comment: PERF ORMED BY: [facility] [address] [place] [address] PATHOLOGIST RACING MECHANIC BROWN PEREZ M.D. Performed By: #### C BC, SCAN ####[facility] [id number] [place] [id number] [facility] Platelets #/vol (Bld) Normal Normal Normal [facility] Comment on above: Performed By: #### C BC, SCAN ####[facility] [id number] RBC morphology finding Nom (Bld) Normal Normal [facility] Comment on above: Performed By: #### C BC, SCAN ####[facility] [address] [place] [address] [facility] Thrombotic Risk Profileon Anticardiolipin Ab, IgG,Qn <9 Normal 0-14 [facility] Comment on above: Result Comment: Nega tive: <15 Indeterminate: 15 - 20 Low-Med Positive: >20 - 80 High Positive: >80 Performed By: #### T HROM RISK ####[facility] , Anticardiolipin Ab, IgM,Qn 9 Normal 0-12 [facility] Comment on above: Result Comment: Nega tive: <13 Indeterminate: 13 - 20 Low-Med Positive: >20 - 80 High Positive: >80 Performed By: #### T HROM RISK ####[facility] , Antithrombin Activity 116 % Normal 75-135 [facility] Comment on above: Result Comment: Dire ct Xa inhibitor anticoagulants such as rivaroxaban, apixaban and edoxaban will lead to spuriously elevated antithrombin activity levels possibly masking a deficiency. Performed By: #### T HROM RISK ####[facility] , aPTT Coag time (Bld) 32.4 s Normal 0.0-51.[address] [facility] Comment on above: Performed By: #### T HROM RISK ####[facility] , Beta 2 Glycoprotein I Ab, IgG <9 Normal 0-20 [facility] Comment on above: Result Comment: [...] Glycoprotein I Ab, IgM <9 Normal 0-32 [facility] Comment on above: Result Comment: [...] , dPT Confirm Ratio 0.94 Normal 0.00-1.40 [facility] Comment on above: Performed By: #### T HROM RISK ####[facility] , DRVVT Lupus 29.9 Normal 0.0-47.0 [facility] Comment on above: Performed By: #### T HROM RISK ####[facility] , Factor II DNA Analysis Normal . [facility] Comment on above: Result Comment: NEGA TIVE No mutation identified. Comment: A point mutation ([id number]) in the factor II (prothrombin) gene is [...] mutations. This assay detects only the prothrombin [id number] mutation and does not measure genetic abnormalities [...] health care providers to discuss results at [phone] ([phone]). Methodology: DNA analysis of the Factor II gene was performed by PCR amplification followed by restriction analysis. The diagnostic sensitivity is >99% for both. All the tests must be combined with clinical information for the most accurate interpretation. Molecular-based testing is highly accurate, but as in any laboratory test, diagnostic errors may occur. This test was developed and its performance characteristics determined by [facility]. It has not been cleared or approved by the Food and Drug Administration. Poort SR, et al. Blood. 1996; 88:3154-2618. Ria FAIR. Circulation. 2004; 110:e15-e18. Gali I, et al. Arterioscler Thromb Vasc Biol. 1999; 19:700-703. Brittaney Ly, PhD, FACMG Jessi Marquis, PhD, FACMG Dax Jean BaptisteS., PhD, FACMG Yoselin Breaux, PhD, FACMG Jonathan Walsh, PhD, FAC Jesus Quiñones, PhD, FAC Performed at: - [address] [id number] [address] Worker: Rupert Bustillos PhD, Phone: [phone] Performed at: [facility] [address] [id number] [address] Worker: You Gamble MD, Phone: [phone] Performed at: [facility] [address] [place], [place] [id number] Drive Worker: Sis Desai MD, Phone: [phone] Performed By: #### T HROM RISK ####[facility] , Homocyst(e)ine 9.5 umol/L Normal 0.0-15.0 [facility] Comment on above: Result Comment: PERF ORMED BY: [facility] [address] [place] [address] PATHOLOGIST RACING MECHANIC BROWN PEREZ M.D. Performed By: #### T HROM RISK ####[facility] , Interpretation Comment: Normal . [facility] Comment on above: Result Comment: No l upus anticoagulant was detected. Performed By: #### T HROM RISK ####[facility] , Plasminogen 116 % Normal 70-150 [facility] Comment on above: Performed By: #### T HROM RISK ####[facility] , Protein mass conc 2.8 g/dL Normal 2.2-3.5 [facility] Comment on above: Result Comment: The APCR result may be falsely increased (masking an abnormal, low APCR result) in patients on direct Xa inhibitor (e.g., rivaroxaban, apixaban, edoxaban) or a direct thrombin inhibitor (e.g., dabigatran) anticoagulant therapy due to assay interference by these drugs. Performed By: #### T HROM RISK ####[facility] , Protein mass conc 37.4 g/dL Normal 0.0-55.0 [facility] Comment on above: Performed By: #### T HROM RISK ####[facility] , Protein mass conc 155 % Normal 73-180 [facility] Comment on above: Performed By: #### T HROM RISK ####[facility] , Protein mass conc 85 % Normal 57-157 [facility] Comment on above: Result Comment: This test was developed and its performance characteristics determined by [facility]. It has not been cleared or approved by the Food and Drug Administration. Performed By: #### T HROM RISK ####[facility] , Urinalysison 06-27-2018 Appearance Nom (U) Clear Normal Clear [facility] Comment on above: Order Comment: Name Collection Type: Clean-Voided Midstream Performed By: #### U A ####[facility] [id number] [place] [address] [facility] Bilirubin,Urine Negative Normal Negative [facility] Comment on above: Order Comment: Name Collection Type: Clean-Voided Midstream Performed By: #### U A ####[address] [address] [facility] Color Nom (U) Yellow Normal Yellow [facility] Comment on above: Order Comment: Name Collection Type: Clean-Voided Midstream Performed By: #### U A ####[address] [address] [facility] Glucose Ql (U) Normal Normal Normal [facility] Comment on above: Order Comment: Name Collection Type: Clean-Voided Midstream Performed By: #### U A ####[address] [address] [facility] Ketones Ql (U) Negative Normal Negative [facility] Comment on above: Order Comment: Name Collection Type: Clean-Voided Midstream Performed By: #### U A ####[place] [id number] [facility] Leukocyte esterase Test strip Ql (U) Negative Normal Negative [facility] Comment on above: Order Comment: Name Collection Type: Clean-Voided Midstream Performed By: #### U A ####[address] [address] [facility] Nitrite,Urine Negative Normal Negative [facility] Comment on above: Order Comment: Name Collection Type: Clean-Voided Midstream Performed By: #### U A ####[address] [address] [facility] Occult Blood,Urine Negative Normal Negative [facility] Comment on above: Order Comment: Name Collection Type: Clean-Voided Midstream Result Comment: PERF ORMED BY: [facility] [address] [place] [place] [id number] PATHOLOGIST RACING MECHANIC BROWN PEREZ M.D. Performed By: #### U A ####[address] [address] [facility] pH (U) 7.0 [pH] Normal 5.0-9.0 [facility] Comment on above: Order Comment: Name Collection Type: Clean-Voided Midstream Performed By: #### U A ####[address] [address] [facility] Protein mass conc (U) Negative Normal Negative [facility] Comment on above: Order Comment: Name Collection Type: Clean-Voided Midstream Performed By: #### U A ####[place] [id number] [facility] Specificy Ragland,Urine 1.019 Normal 1.001-1.030 [facility] Comment on above: Order Comment: Name Collection Type: Clean-Voided Midstream Performed By: #### U A ####[place] [id number] [facility] Urobilinogen,Urine Normal Normal Normal [facility] Comment on above: Order Comment: Name Collection Type: Clean-Voided Midstream Performed By: #### U A ####[place] [id number] [facility] Basic Metabolic Panelon 06-08 Calcium mass conc 8.4 mg/dL Normal 8.2-10.2 [facility] Comment on above: Performed By: #### B MP, CBC, SCAN ####[place] [id number] [facility] Chloride molar conc 103 mmol/L Normal 95-114 [facility] Comment on above: Performed By: #### B MP, CBC, SCAN ####[place] [id number] [facility] CO2 molar conc 25.0 mmol/L Normal 22.0-30.0 [facility] Comment on above: Performed By: #### B MP, CBC, SCAN ####[place] [id number] [facility] Creatinine mass conc 119.6571392777 mg/dL Normal [facility] Comment on above: Result Comment: PERF ORMED BY: [facility] [address] [place] [id number] PATHOLOGIST RACING MECHANIC JIANLAN SUN M.D. Performed By: #### B MP, CBC, SCAN ####[place] [address] [place] [address] [facility] Creatinine mass conc 0.54 mg/dL Normal 0.44-1.[address] [facility] Comment on above: Performed By: #### B MP, CBC, SCAN ####[place] [address] [place] [address] [facility] Estimated GFR ( Yanci > 60 Normal [facility] Comment on above: Result Comment: GFR estimated reference range: According to KDOQI guidelines, <60 ml/min/1.73m2 is sufficient to diagnose a patient with chronic kidney disease. Performed By: #### B MP, CBC, SCAN ####[place] [address] [place] [address] [place] Estimated GFR (Non- Am > 60 Normal [facility] Comment on above: Performed By: #### B MP, CBC, SCAN ####[address] [address] [place] Glucose mass conc 79 mg/dL Normal 70-100 [facility] Comment on above: Result Comment: [place] Glucose Reference Range is dependent on time and content of last meal. Glucose of more than 200 mg/dL in a nonstressed, ambulatory subject supports the diagnosis of Diabetes Mellitus. ADA recommended reference range Performed By: #### B MP, CBC, SCAN ####[place] [address] [place] [address] [facility] Potassium molar conc 3.5 mmol/L Normal 3.5-5.[address] [facility] Comment on above: Performed By: #### B MP, CBC, SCAN ####[place] [address] [place] [address] [place] Sodium molar conc 137 mmol/L Normal 136-146 [facility] Comment on above: Performed By: #### B MP, CBC, SCAN ####[address] [address] [place] Urea nitrogen mass conc 9 mg/dL Normal 9-23 [facility] Comment on above: Performed By: #### B MP, CBC, SCAN ####[place] [address] Complete Blood Count Auto Di ffon 06-26-2018 Basophils #/vol (Bld) 0.1 10*3/uL Normal 0.0-0.2 [facility] Comment on above: Performed By: #### B MP, CBC, SCAN ####[address] Basophils/100 WBC (Bld) 0.6 % Normal . [facility] Comment on above: Performed By: #### B MP, CBC, SCAN ####[address] Eosinophils #/vol (Bld) 0.2 10*3/uL Normal 0.0-0.45 [facility] Comment on above: Performed By: #### B MP, CBC, SCAN ####[address] Eosinophils/100 WBC (Bld) 1.7 % Normal . [facility] Comment on above: Performed By: #### B MP, CBC, SCAN ####[address] Erythrocyte distribution width Ratio (RBC) 14.7 % Normal 11.9-15.3 [facility] Comment on above: Performed By: #### B MP, CBC, SCAN ####[address] Hematocrit Volume Fraction (Bld) 45.3 % Normal 34.0-46.4 [facility] Comment on above: Performed By: #### B MP, CBC, SCAN ####[address] Hemoglobin mass conc (Bld) 15.3 g/dL Normal 11.8-15.4 [facility] Comment on above: Performed By: #### B MP, CBC, SCAN ####[facility] [id number] [place] [address] Lymphocytes #/vol (Bld) 6.1 10*3/uL High 1.00-4.8 [facility] Comment on above: Performed By: #### B MP, CBC, SCAN ####[place] [id number] [facility] Lymphocytes/100 WBC (Bld) 45.3 % Normal . [facility] Comment on above: Performed By: #### B MP, CBC, SCAN ####[place] [address] [place] [address] [facility] MCH Entitic mass (RBC) 32.9 pg Normal 24.7-34.3 [facility] Comment on above: Performed By: #### B MP, CBC, SCAN ####[place] [address] [place] [address] [facility] MCH Entitic mass (RBC) 33.7 g/dL Normal 32.0-35.0 [facility] Comment on above: Performed By: #### B MP, CBC, SCAN ####[address] MCV Entitic volume (RBC) 97.6 fL Normal 80-100 [facility] Comment on above: Performed By: #### B MP, CBC, SCAN ####[place] [id number] [facility] Monocytes #/vol (Bld) 0.7 10*3/uL Normal 0.0-0.8 [facility] Comment on above: Performed By: #### B MP, CBC, SCAN ####[place] [id number] [facility] Monocytes/100 WBC (Bld) 5.4 % Normal . [facility] Comment on above: Performed By: #### B MP, CBC, SCAN ####[address] [address] [facility] Neutrophils #/vol (Bld) 6.4 10*3/uL Normal 1.8-7.7 [facility] Comment on above: Performed By: #### B MP, CBC, SCAN ####[facility] [id number] [place], [place] [id number] [facility] Neutrophils/100 WBC (Bld) 47.0 % Normal . [facility] Comment on above: Performed By: #### B MP, CBC, SCAN ####[place] [address] [place] [id number] [facility] Nucleated RBC/100 WBC Ratio (Bld) 0.1 % Normal 0-0.5 [facility] Comment on above: Performed By: #### B MP, CBC, SCAN ####[place] [id number] [facility] Platelet mean volume Entitic volume (Bld) 7.3 fL Normal 6.3-10.7 [facility] Comment on above: Performed By: #### B MP, CBC, SCAN ####[place] [id number] [facility] Platelets #/vol (Bld) 348 10*3/uL Normal 150-450 [facility] Comment on above: Performed By: #### B MP, CBC, SCAN ####[address] RBC #/vol (Bld) 4.64 10*6/uL Normal 3.60-5.00 [facility] Comment on above: Performed By: #### B MP, CBC, SCAN ####[place] [id number] [facility] WBC #/vol (Bld) 13.6 10*3/uL High 3.8-11.6 [facility] Comment on above: Performed By: #### B MP, CBC, SCAN ####[place] [id number] [facility] Scan Smearon 06-26-2018 Platelet Morphology Normal Normal Normal [facility] Comment on above: Result Comment: PERF ORMED BY: [facility] [address] [place] [address] PATHOLOGIST [employer]ACING MECHANIC BROWN PEREZ M.D. Performed By: #### B MP, CBC, SCAN ####[place] [id number] [place] [id number] [facility] Platelets #/vol (Bld) Normal Normal Normal [facility] Comment on above: Performed By: #### B MP, CBC, SCAN ####[place] [id number] [place] [id number] [facility] RBC morphology finding Nom (Bld) Normal Normal [facility] Comment on above: Performed By: #### B MP, CBC, SCAN ####[facility] [id number] [place] [id number] [facility] XR chest 1V portableon 06-26 XR chest 1V portable [facility] [address] [place] [address] [place] [address] XRay Report Signed Patient: Merly Torrez MR#: [id number] : 1970 Acct:[id number] Age/Sex: 48 / F ADM Date: 06/24/18 Loc: Room: [address] [place] [address] Type: ADM IN Attending Dr: Yoko Johnson [...] Joselito Edge M.D.06/26/2018 7:06 PM Dictation Location: [facility] Transcribed By: [facility] 06/26/181905 Dictated By: Joselito Edge II, MD 06/26/181904 Signed By: 06/26/181905 Normal [facility] A1C with Estimated Average G js 06-25-2018 Glucose mass conc 111 mg/dL Normal [facility] Comment on above: Result Comment: PERF ORMED BY: [place] [address] PATHOLOGIST RACING MECHANIC BROWN PEREZ M.D. Performed By: #### C MP, MG, LIPID, CBC, A1C WTH eA #### [address] Hemoglobin A1c/Hemoglobin.total mass fraction (Bld) 5.5 % Normal 4.3-5.6 [facility] Comment on above: Result Comment: Incr eased risk for diabetes: 5.7 - 6.4 diabetes: >6.4 glycemic control for adults with diabetes: <7.0 Performed By: #### C MP, MG, LIPID, CBC, A1C WTH eA #### [address] Complete Blood Count Auto Di ffon 06-25-2018 Basophils #/vol (Bld) 0.0 10*3/uL Normal 0.0-0.2 [facility] Comment on above: Result Comment: PERF ORMED BY: [place] [address] PATHOLOGIST RACING MECHANIC BROWN PEREZ M.D. Performed By: #### C MP, MG, LIPID, CBC, A1C WTH eA #### [address] Basophils/100 WBC (Bld) 0.2 % Normal . [facility] Comment on above: Performed By: #### C MP, MG, LIPID, CBC, A1C WTH eA #### [address] Eosinophils #/vol (Bld) 0.0 10*3/uL Normal 0.0-0.45 [facility] Comment on above: Performed By: #### C MP, MG, LIPID, CBC, A1C WTH eA #### [address] Eosinophils/100 WBC (Bld) 0.1 % Normal . [facility] Comment on above: Performed By: #### C MP, MG, LIPID, CBC, A1C WTH eA #### [address] Erythrocyte distribution width Ratio (RBC) 15.0 % Normal 11.9-15.3 [facility] Comment on above: Performed By: #### C MP, MG, LIPID, CBC, A1C WTH eA #### [address] Hematocrit Volume Fraction (Bld) 42.3 % Normal 34.0-46.4 [facility] Comment on above: Performed By: #### C MP, MG, LIPID, CBC, A1C WTH eA #### [address] Hemoglobin mass conc (Bld) 14.2 g/dL Normal 11.8-15.4 [facility] Comment on above: Performed By: #### C MP, MG, LIPID, CBC, A1C WTH eA #### [address] Lymphocytes #/vol (Bld) 3.5 10*3/uL Normal 1.00-4.8 [facility] Comment on above: Performed By: #### C MP, MG, LIPID, CBC, A1C WTH eA #### [address] Lymphocytes/100 WBC (Bld) 28.7 % Normal . [facility] Comment on above: Performed By: #### C MP, MG, LIPID, CBC, A1C WTH eA #### [address] MCH Entitic mass (RBC) 33.5 g/dL Normal 32.0-35.0 [facility] Comment on above: Performed By: #### C MP, MG, LIPID, CBC, A1C WTH eA #### [address] [facility]CH Entitic mass (RBC) 32.9 pg Normal 24.7-34.3 [facility] Comment on above: Performed By: #### C MP, MG, LIPID, CBC, A1C WTH eA #### [address] MCV Entitic volume (RBC) 98.1 fL Normal 80-100 [facility] Comment on above: Performed By: #### C MP, MG, LIPID, CBC, A1C WTH eA #### [facility] [address] [place] [address] Monocytes #/vol (Bld) 0.8 10*3/uL Normal 0.0-0.8 [facility] Comment on above: Performed By: #### C MP, MG, LIPID, CBC, A1C WTH eA #### [facility] [address] [place] [address] Monocytes/100 WBC (Bld) 6.9 % Normal . [facility] Comment on above: Performed By: #### C MP, MG, LIPID, CBC, A1C WTH eA #### [facility] [address] [place] [address] Neutrophils #/vol (Bld) 7.8 10*3/uL High 1.8-7.7 [facility] Comment on above: Performed By: #### C MP, MG, LIPID, CBC, A1C WTH eA #### [address] Neutrophils/100 WBC (Bld) 64.1 % Normal . [facility] Comment on above: Performed By: #### C MP, MG, LIPID, CBC, A1C WTH eA #### [address] Nucleated RBC/100 WBC Ratio (Bld) 0.1 % Normal 0-0.5 [facility] Comment on above: Performed By: #### C MP, MG, LIPID, CBC, A1C WTH eA #### [address] Platelet mean volume Entitic volume (Bld) 7.7 fL Normal 6.3-10.7 [facility] Comment on above: Performed By: #### C MP, MG, LIPID, CBC, A1C WTH eA #### [facility] [address] [place] [address] Platelets #/vol (Bld) 333 10*3/uL Normal 150-450 [facility] Comment on above: Performed By: #### C MP, MG, LIPID, CBC, A1C WTH eA #### [place] [address] [place] RBC #/vol (Bld) 4.32 10*6/uL Normal 3.60-5.00 [facility] Comment on above: Performed By: #### C MP, MG, LIPID, CBC, A1C WTH eA #### [facility] [address] WBC #/vol (Bld) 12.2 10*3/uL High 3.8-11.6 [facility] Comment on above: Performed By: #### C MP, MG, LIPID, CBC, A1C WTH eA #### [facility] [address] Comprehensive Metabolic Pane kishan 06-25-2018 Albumin mass conc 3.1 g/dL Low 3.2-5.5 [facility] Comment on above: Performed By: #### C MP, MG, LIPID, CBC, A1C WTH eA #### [address] Albumin/Globulin mass ratio 1.2 {ratio} Normal [facility] Comment on above: Performed By: #### C MP, MG, LIPID, CBC, A1C WTH eA #### [facility] [address] [place] [address] ALP enzyme act/vol 52 U/L Normal 32-92 [facility] Comment on above: Performed By: #### C MP, MG, LIPID, CBC, A1C WTH eA #### [facility] [address] [place] [address] ALT enzyme act/vol 30 U/L Normal 10-60 [facility] Comment on above: Performed By: #### C MP, MG, LIPID, CBC, A1C WTH eA #### [facility] [address] AST enzyme act/vol 14 U/L Normal 10-42 [facility] Comment on above: Performed By: #### C MP, MG, LIPID, CBC, A1C WTH eA #### [facility] [address] Bilirubin mass conc 0.6 mg/dL Normal 0.3-1.2 [facility] Comment on above: Performed By: #### C MP, MG, LIPID, CBC, A1C WTH eA #### [address] Calcium mass conc 8.6 mg/dL Normal 8.2-10.2 [facility] Comment on above: Performed By: #### C MP, MG, LIPID, CBC, A1C WTH eA #### [address] Chloride molar conc 103 mmol/L Normal 95-114 [facility] Comment on above: Performed By: #### C MP, MG, LIPID, CBC, A1C WTH eA #### [address] CO2 molar conc 25.9 mmol/L Normal 22.0-30.0 [facility] Comment on above: Performed By: #### C MP, MG, LIPID, CBC, A1C WTH eA #### [address] Creatinine mass conc 123.5056194976 mg/dL Normal [facility] Comment on above: Performed By: #### C MP, MG, LIPID, CBC, A1C WTH eA #### [address] Creatinine mass conc 0.52 mg/dL Normal 0.44-1.[address] [facility] Comment on above: Performed By: #### C MP, MG, LIPID, CBC, A1C WTH eA #### [address] Estimated GFR ( Yanci > 60 [facility] Comment on above: Result Comment: GFR estimated reference range: According to KDOQI guidelines, <60 ml/min/1.73m2 is sufficient to diagnose a patient with chronic kidney disease. Performed By: #### C MP, MG, LIPID, CBC, A1C WTH eA #### [address] Estimated GFR (Non- Am > 60 [facility] Comment on above: Performed By: #### C MP, MG, LIPID, CBC, A1C WTH eA #### [facility] [address] [place] [address] [place] Globulin mass conc (S) 2.5 g/dL Normal [facility] Comment on above: Performed By: #### C MP, MG, LIPID, CBC, A1C WTH eA #### [facility] [address] Glucose mass conc 93 mg/dL Normal 70-100 [facility] Comment on above: Result Comment: [facility] Glucose Reference Range is dependent on time and content of last meal. Glucose of more than 200 mg/dL in a nonstressed, ambulatory subject supports the diagnosis of Diabetes Mellitus. ADA recommended reference range Performed By: #### C MP, MG, LIPID, CBC, A1C WTH eA #### [facility] [address] Potassium molar conc 3.2 mmol/L Low 3.5-5.[address] [facility] Comment on above: Performed By: #### C MP, MG, LIPID, CBC, A1C WTH eA #### [facility] [address] Protein mass conc 5.6 g/dL Low 6.1-7.9 [facility] Comment on above: Performed By: #### C MP, MG, LIPID, CBC, A1C WTH eA #### [facility] [address] [place] [address] [place] Sodium molar conc 137 mmol/L Normal 136-146 [facility] Comment on above: Performed By: #### C MP, MG, LIPID, CBC, A1C WTH eA #### [facility] [address] [place] [address] [place] Urea nitrogen mass conc 8 mg/dL Low 9-23 [facility] Comment on above: Performed By: #### C MP, MG, LIPID, CBC, A1C WTH eA #### [facility] [address] ECH echo transthoracicon ECH echo transthoracic [facility] [address] [place] [address] [place] [address] Echocardiogram Signed Patient: Merly Torrez MR#: [id number] : 1970 Acct:[id number] Age/Sex: 48 / F ADM Date: 06/24/18 Loc: 4 Room: [address] [place] [address] Type: ADM IN Attending Dr: Yoko Johnson [...] 06/25/18 1014 Dictated By: Mckenzie Griffiths MD, [facility] 06/25/18 0920 Signed By: 06/25/18 1014 Normal [facility] Lipid Panelon 06-25-2018 Cholesterol in HDL mass conc 52 mg/dL Normal 35-85 [facility] Comment on above: Result Comment: HDL CHOL ATP-III CLASSIFICATION Cardiovascular Risk HDL > or equal to 60 mg/dL LOW HDL < 40 mg/dL HIGH Performed By: #### C MP, MG, LIPID, CBC, A1C WTH eA #### [facility] [address] Cholesterol mass conc 206 mg/dL High 140-200 [facility] Comment on above: Result Comment: Chol less than 200 mg/dl low risk Chol 201-239 mg/dl borderline risk Chol 240 mg/dl and greater high risk Performed By: #### C MP, MG, LIPID, CBC, A1C WTH eA #### [facility] [address] Cholesterol.total/Ch olesterol in HDL mass ratio 4.0 {ratio} Normal <5.0 [facility] Comment on above: Result Comment: PERF ORMED BY: [place] [address] PATHOLOGIST RACING MECHANIC BROWN PEREZ M.D. Performed By: #### C MP, MG, LIPID, CBC, A1C WTH eA #### [facility] [address] [place] [id number] [place] LDL Cholesterol,Calculat ed 138 mg/dL High 0-100 [facility] Comment on above: Result Comment: LDL ATP III CLASSIFICATION LDL less than 100 mg/dL Optimal LDL 100-129 mg/dL Near or above optimal LDL 130-159 mg/dL Borderline high LDL 160-189 mg/dL High LDL greater than 189 mg/dL Very high Performed By: #### C MP, MG, LIPID, CBC, A1C WTH eA #### [facility] [address] Triglyceride w/Reflex 79 mg/dL Normal 35-149 [facility] Comment on above: Result Comment: TRIG ATP III CLASSIFICATION TRIG less than 150 mg/dL Normal TRIG 150-199 mg/dL Borderline high TRIG 200-500 mg/dL High TRIG greater than 500 mg/dL Very high Standard traceable to the Center for Disease Conrtrol and Prevention (CDC) test method. Performed By: #### C MP, MG, LIPID, CBC, A1C WTH eA #### [facility] [address] VLDL CHOLESTEROL 15 mg/dL Normal [facility] Comment on above: Performed By: #### C MP, MG, LIPID, CBC, A1C WTH eA #### [facility] [address] MR head/brain wo conon 06-25 MR head/brain wo con [facility] [place] [address] [place] [address] MRI Report Signed with Addenda Patient: Merly Torrez MR#: [id number] : 1970 Acct:[id number] Age/Sex: 48 / F ADM Date: 06/24/18 Loc: Room: [address] [place] [address] Type: DIS IN Attending Dr: Yoko Johnson [...] Joselito Edge M.D.07/04/2018 1:54 PM [facility]ictation [id number] Addendum Dictated By: Joselito Edge II, MD [...] Joselito Edge M.D.06/25/2018 4:37 PM Dictation Location: [place] [address] Transcribed By: CHOLO 06/25/18 1637 Dictated By: Joselito Edge II, MD 06/25/18 1627 Signed By: 06/25/18 1637 Normal [facility] Magnesiumon 06-25-2018 Magnesium mass conc 1.9 mg/dL Normal 1.6-2.6 [facility] Comment on above: Performed By: #### C MP, MG, LIPID, CBC, A1C WT eA #### [facility] [address] [place] [address] [place] US carotid doppler BIon 06-08 US carotid doppler BI [facility] [address] [place] [address] [place] [address] Vascular Lab Report Signed Patient: Merly Torrez MR#: [id number] : 1970 Acct:[id number] Age/Sex: 48 / F ADM Date: 06/24/18 Loc: 4P Room: [id number] Type: ADM IN Attending Dr: Yoko Johnson [...] 1503 Dictated By: Radames Grover MD 06/25/18 8521 Signed By: 06/25/18 5731 [facility] MR head/brain wo juanitaon 05-28 MR head/brain wo con [facility] [place] [address] MRI Report Signed Patient: Merly Torrez MR#: [id number] : 1970 Acct:[id number] Age/Sex: 48 / F ADM Date: 05/28/18 Loc: [facility] Room: Type: REG CLI Attending Dr: [...] Dictation Location: [facility] Transcribed By: CHOLO 05/28/18 7428 Dictated By: Luisa Edouard MD 05/28/18 1537 Signed By: 05/28/18 1608 Normal [facility] US carotid doppler BIon 02- US carotid doppler BI [facility] [place] [address] [place] [address] Vascular Lab Report Signed Patient: Merly Torrez MR#: [id number] : 1970 Acct:[id number] Age/Sex: 48 / F ADM Date: 05/18/18 [...] 05/22/18 0836 Signed By: 05/23/18 0752 Normal [facility] ECG 12 lead ECGon 05-18-2018 ECG 12 lead ECG [facility] Main [address] [address] Electrocardiograph Report Signed Patient: Merly Torrez MR#: [id number] : 1970 Acct:[id number] Age/Sex: 48 / F ADM Date: 05/18/18 [...] 05/18/18 1337 Signed By: 05/19/18 1620 Normal [facility] Encounters Encounter Date Encounter Type Care Provider Facility Start: 08-03-2022 End: 08-03-[address] DONATO RUSH . Facility: Start: 06-24-2018 End: 06-28-2018 Evaluation and management of inpatient Kervin Gaspar Facility:[facility] Start: 05-28-2018 End: 05-28-2018 Patient encounter procedure Max Astrid English Facility:[facility] Start: 05-18-2018 End: 05-18-2018 Patient encounter procedure Max Astrid English Facility:[facility] Start: 05-06-2018 End: 05-06-2018 Evaluation and management of inpatient ROJELIO ENGLISH [facility] Procedures Date Procedure Procedure Detail Performing [...] AL VTE PROPHYLAXIS [facility] Start: 05-06-2018 GREEN PLUMBER EVAL AND TREAT [facility] Start: 05-06-2018 TOBACCO CESSATION EDUCATION [facility] Start: 05-06-2018 VITAL SIGNS [facility] K Start: 05-06-2018 PATIENT STATUS (FROM ED OR OR/PROCEDURAL) ROJELIO ENGLISH Start: 05-06-2018 IP CONSULT TO TRAUMA SURGERY ROJELIO ENGLISH Payers Date Payer Category Payer Medicare [id number] 2018 Self-pay 2018 Medicare [id number] 1970 Unknown [id number] 1970 Unknown [id number] 1957 Medicaid [id number] 1957 Medicare [id number] Unknown [id number] Unknown [id number] Unknown [id number] Summary Purpose Family History No Family History Records FoundNo Family History Records FoundNo Family History Records Found Advance Directives No Advanced Directives Records FoundNo Advanced Directives Records FoundNo Advanced Directives Records Found Additional Source Comments INFORMATION SOURCE (unrecogn ized section and content) DATE CREATED AUTHOR 05/29/2018 [facility] DATE CREATED AUTHOR AUTHOR'S ORGANIZ ATION 07/04/2018 [facility] DATE CREATED AUTHOR AUTHOR'S ORGANIZ ATION 08/04/2022 [facility] FOR RECORDS PERTAINING TO PATIENTS WHO ARE [...] BE BASED ON THE PRIMARY CLINICAL RECORDS. [employer] [facility]. provides no warranty or guarantee of the accuracy or completeness of information in this document.
[2023-04-06 07:57] LABS: Glucometer 95 mg/dL (74-106)
[2023-04-06] MEDS: LACTATED RINGER'S SOLUTION 1,000 ML 75 ML IV (07:59)
[2023-04-06] MEDS: CEFAZOLIN SODIUM/DEXTROSE,ISO 2 GM/50 ML PIGGYBACK IV (09:20)
[2023-04-06] MEDS: LIDOCAINE HCL 1% 100 MG/10 ML MDV INJ (10:04)
[2023-04-06] MEDS: BUPIVACAINE HCL 0.5% PF 50 MG/10 ML VIAL INJ (10:27)
--- NOTE | 2023-04-06 10:27 | XR_ITS ---
[address] [address] Patient Name: MERLY HAYES MRN: [id number] date: 1970 Sex: F Assigned Patient Location: [facility] Current Patient Location: Accession/Order Number: [id number] Exam Date: 04/06/2023 10:45 Report Date: 04/08/2023 13:50 At the request of: JOANN RAMIREZ Procedure: XR foot LT min 3V EXAM: XR foot LT min 3V HISTORY: hammertoe COMPARISON: None. FINDINGS/IMPRESSION: 1. No acute fracture or dislocation 2. Amputation of the distal third phalanx. 3. Mild degeneration of the mid foot. Soft tissue swelling about the forefoot. 4. No ankle joint effusion. 5. Mild degeneration of the mid foot. Electronically authenticated by: JANET BREAUX Date: 04/08/2023 13:50
[2023-04-06 10:39] LABS: Glucometer 100 mg/dL (74-106)
--- NOTE | 2023-04-06 16:10 | PM.ORONB ---
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 She has had worsening pain and deformity especially of the 3rd toe and secondary callus and onychomycosis. She initially was seen outside [employer] for routine nail and callus care however her pain has only worsened therefore she was sent to me for surgical consultation. I discussed the potential risks and benefits of hammertoe correction versus partial toe amputation. Patient wished to proceed with partial toe amputation. She was educated and on the plantar complications as well as recovery. All questions were answered to her satisfaction INTRAOPERATIVE FINDINGS: severe rigid contracture of the 3rd PIPJ and DIPJ. Toes to four and five were reduced with the contracted. No signs of infection. PROCEDURE IN DETAIL: Patient was identified in pre op and consent was reviewed. Correct side and site were identified and marked. Pre-op antibiotics were started. Patient was brought to OR suite and place on table in a supine position. General anesthesia was administered. Tourniquet applied. Operative extremity was prepped and draped in usual sterile fashion. Formal time-out was performed and the foot/ankle were exsanguinated. A fishmouth incision was placed on the 3rd toe. Full-thickness incision was taken down to bone to the level of the DIPJ and all soft tissue attachments were released allowing disarticulation of the digit. The amputated digit was passed back table and sent for specimen. Tendinous structures were cut proximally. Surgical site was irrigated with normal saline. all tissue appeared to be healthy. Incision was then closed in one layer with nonabsorbable suture. Bulky dry sterile dressing and surgical shoe were applied. POSTOPERATIVE PLAN: Discharge home under family's care Post op instructions provided verbally and written prescription(s) were placed in chart weightbearing as tolerated in surgical shoe until skin has healed Change dressing daily washing the incision with soap and water and replacing a dressing with 4 x 4 gauze Follow-up in 1 week Implants: none Anesthesia: General-LMA Surgeon: Segundo Acosta Estimated blood loss (mL): 10 Tourniquet time (min): 0 Pathology: other (3rd toe) Condition: stable Disposition: PACU
== END 2023-04-06 11:35 | disposition home or self-care (01) ==
PROVIDERS: Visit Provider Podiatrist Foot & Ankle Surgery
PROC: (CPT 1480; principal; 2023-04-06 08:40)
DX: M20.42 Other hammer toe(s) (acquired), left foot (principal); I10 Essential (primary) hypertension; Z79.01 Long term (current) use of anticoagulants; Z86.73 Personal history of transient ischemic attack (TIA), and cerebral infarction without residual deficits; G62.9 Polyneuropathy, unspecified; B35.1 Tinea unguium; M19.90 Unspecified osteoarthritis, unspecified site; F41.9 Anxiety disorder, unspecified; K21.9 Gastro-esophageal reflux disease without esophagitis; E78.00 Pure hypercholesterolemia, unspecified; Z87.442 Personal history of urinary calculi; Z90.710 Acquired absence of both cervix and uterus; F17.210 Nicotine dependence, cigarettes, uncomplicated; M21.372 Foot drop, left foot; Z79.02 Long term (current) use of antithrombotics/antiplatelets; Z79.899 Other long term (current) drug therapy; F10.21 Alcohol dependence, in remission
CPT/HCPCS: 28825; 36415; 73630; 82948; 88305; 88311; J2704